=== PATIENT | male | born 1990 | race Two or more races ===

== ENCOUNTER 2019-11-21 22:33 | Emergency (ER) | payer MEDICAID ==
[~2019-11-21] VITALS: Ht 170.2 cm; Wt 68.0 kg
[2019-11-21] MEDS ORDERED: SODIUM CHLORIDE 0.9% 1,000 ML IVB ONE (22:42)
[2019-11-21] MEDS ORDERED: InsuLIN REG 1unit/0.01ml Soln (100units/ml) IV ONE (22:45)
[2019-11-21 23:21] LABS: Basophils # (auto) 0.1 10 ^3/uL (0-0.2); Eosinophils # (auto) 0.1 10 ^3/uL (0-0.8); Eosinophils % (auto) 1.3 % (0.0-7.0); Hematocrit 38.2 % (41.0-53.0); Lymphocytes # (auto) 2.9 10 ^3/uL (0.4-5.4); Lymphocytes % (auto) 32.9 % (10.0-50.0); Mean Corpuscular Hemoglobin 27.6 pg (28.0-32.0); Mean Corpuscular Hgb Conc. 33.9 g/dL (32.0-36.0); Mean Corpuscular Volume 81.5 fL (80.0-100.0); Monocytes # (auto) 0.4 10 ^3/uL (0-1.3); Monocytes % (auto) 4.4 % (0.0-12.0); Neutrophils # (auto) 5.4 10 ^3/uL (1.6-8.6); Neutrophils % (auto) 60.4 % (37.0-80.0); Platelet Count (auto) 651 10^3/uL (140-450); Red Blood Cells 4.69 10^6/uL (4.5-5.90); Red Cell Distribution Width 15.6 % (11.8-14.3); White Blood Cell 8.9 10^3/uL (4.4-10.8)
[2019-11-21 23:44] LABS: Albumin 3.3 g/dL (3.4-5.0); BUN/Creatinine Ratio 10.6; Calcium 8.8 mg/dL (8.5-10.1)
[2019-11-21 23:47] LABS: Bilirubin, Total 0.2 mg/dL (0.2-1.0); Total Protein 7.7 g/dL (6.4-8.2)
[2019-11-21 23:57] LABS: Urine Bacteria FEW /hpf (None Seen); Urine Blood Negative /uL (Negative); Urine Hyaline Cast FEW /lpf (0 - 2); Urine Specific Gravity 1.042 (1.001-1.035); Urine WBC 3 /hpf (0 - 3)
[2019-11-22 00:16] LABS: Amphetamine Screen, Urine POSITIVE (NEGATIVE); Barbiturate Scree,Urine NEGATIVE (NEGATIVE); Benzodiazephine Screen, Urine NEGATIVE (NEGATIVE); Cannabinoid Screen, Urine POSITIVE (NEGATIVE); Opiate Scree,Urine POSITIVE (NEGATIVE); Phencyclidine Screen, Urine NEGATIVE (NEGATIVE)
[2019-11-22 00:18] LABS: Salicylate < 1.7 mg/dL (2.8-20.0)
[2019-11-22 00:21] LABS: Acetaminophen < 2.0 ug/mL (10-30)
[2019-11-22 00:23] LABS: Cocaine Screen, Urine NEGATIVE (NEGATIVE)
[2019-11-22 03:00] VITALS: BP 96/68
[2019-11-22] MEDS ORDERED: SODIUM CHLORIDE 0.9% 1,000 ML IV ONE (03:30)
== END 2019-11-22 04:45 | disposition home or self-care (01) ==
LOC: EDBD 22:37 → ER 22:37
DX: G92 Toxic encephalopathy (principal); R41.82 Altered mental status, unspecified; F10.129 Alcohol abuse with intoxication, unspecified; E87.6 Hypokalemia; F19.10 Other psychoactive substance abuse, uncomplicated; Y90.6 Blood alcohol level of 120-199 mg/100 ml
CPT/HCPCS: 36415; 36600; 80053; 80307; 80320; 80329; 81001; 82010; 82805; 85025; 93005; 96361; 96374; 99291; J1815